=== PATIENT | male | born 1985 | race Caucasian/White ===

== ENCOUNTER → 2019-02-22 | Outpatient (CLI) | payer OTHER ==
--- NOTE | 2019-02-26 20:10 | SLEEPCENT ---
DATE OF PROCEDURE: 02/22/2019 ORDERED BY: Emilee Cabrera Nocturnal polysomnography was performed for evaluation of sleep physiology in this patient with a history of snoring and irregular breathing who experiences excessive somnolence and sleep paralysis. 8 hours and 8 minutes of data were reviewed. There were 438 minutes of sleep identified. Sleep latency was mildly prolonged at 18 minutes. Rapid eye movement (REM) latency was normal at 81 minutes. Sleep architecture was good with five REM cycles. Overall sleep efficiency was 91.2%. The electrocardiogram showed a sinus rhythm with an average heart rate of 64 beats per minute. EEG showed normal waveforms for awake and sleep. Some mild alpha intrusion into non-REM stages but no focal events were seen. There were only seven obstructive respiratory events identified of 10 seconds in duration or greater for an apnea-hypopnea index well within normal limits at 1. Snoring was noted and respiratory-related arousals occurred 2.7 times per hour when arousals from snoring were included. There were no significant oxygen desaturations. Some minor activity was seen in the EMG leads from the limbs with arousals 3.6 times per hour and there was significant snoring noted. IMPRESSION: Normal nocturnal polysomnography with snoring.
== END ==
LOC: M SLEEP 19:28
PROVIDERS: ATTEND Nurse Practitioner Adult Health
DX: G47.30 Sleep apnea, unspecified (principal)